=== PATIENT | female | born 1965 | race African-American/Black ===

== ENCOUNTER 2017-07-10 16:21 | Emergency (ER) | payer BC, OTHER ==
[2017-07-10] MEDS ORDERED: Diphtheria,Pertussis(Acell),Tetanus Vaccine 0.5 ML Syringe IM ONE (16:33)
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
[2017-07-10] MEDS ORDERED: Octyl 2-Cyanoacrylate 1 Tube TOP ONE (17:02)
[2017-07-10] MEDS ORDERED: Proparacaine 0.5% Ophth Soln 15 ML Bottle EYELF STA (17:02)
[2017-07-10 17:42] VITALS: BP 154/87
== END 2017-07-10 17:40 | disposition home or self-care (01) ==
LOC: MW.ED 16:21
DX: S01.81XA Laceration without foreign body of other part of head, initial encounter (principal); S05.8X2A Other injuries of left eye and orbit, initial encounter; Z23 Encounter for immunization; Y04.0XXA Assault by unarmed brawl or fight, initial encounter
CPT/HCPCS: 12013; 90471; 90715; 99284; A9270; 99283